=== PATIENT | male | born 1965 | race Caucasian/White ===

== ENCOUNTER 2016-11-03 16:21 | Emergency (ER) | payer MEDICARE, OTHER ==
[~2016-11-03 16:21] MED LIST: ALBU.5I NEB; ALBUAER3 INH; FLUTI110I INH; GABA300C5 PO; GABA800T PO; IBUP800T23 PO; IPRA0.02 NEB
[2016-11-03 16:34] VITALS: BP 125/78; PULSE 60; RESP 17; TEMP 98.4; O2SAT 98
--- NOTE | 2016-11-03 16:57 | PD ---
HPI Chief Complaint: Psychiatric Symptoms Time Seen by Provider: 16:57 Travel History International Travel<30 days: No Contact w/Intl Traveler<30days: No Traveled to known affect area: No History of Present Illness HPI 51-year-old male with a history of COPD, chronic back pain with neuropathy is brought to the emergency department under Becker act for suicidal ideations. The patient states that he has a history of cocaine addiction and has been clean for 20 years until this past weekend. States that some friends came into town and they were drinking alcohol and then he also started using cocaine. States that he ended up spending his rent money on cocaine and his girlfriend kicked him out. States that he became very upset about his relapse and recent decisions today and posted on Facebook that he wanted to kill himself. He states that he does have some suicidal ideations but no clear plan to harm himself. He denies any attempts to harm himself, denies any ingestion of substances. He denies any medical complaints. Denies any chest pain, short of breath, abdominal pain, nausea, vomiting, diarrhea, headache, lightheadedness or dizziness. States that he typically drinks alcohol about once per month. Denies any other drug use. No other complaints. PFSH Past Medical History Arthritis: Yes (NECK AND BACK) Asthma: Yes Autoimmune Disease: No Blood Disorders: No Anxiety: No Depression: Yes Cancer: No Cardiovascular Problems: No Chemotherapy: No COPD: Yes Diabetes: No Diminished Hearing: No Endocrine: No Gastrointestinal Disorders: No GERD: No Glaucoma: No Genitourinary: No Hepatitis: No Hiatal Hernia: No Immune Disorder: No Kidney Stones: No Musculoskeletal: Yes (BACK PAIN) Neurologic: Yes (BULGING LUMBAR DISCS) Psychiatric: Yes Reproductive: No Respiratory: Yes (COPD) Immunizations Current: Yes Radiation Therapy: No Renal Failure: No Sleep Apnea: No Ulcer: No PNEUMOCCOCAL Vaccine (Year): 2 Past Surgical History Abdominal Surgery: No Body Medical Devices: plate in neck Cardiac Surgery: No Ear Surgery: No Endocrine Surgery: No Eye Surgery: No Genitourinary Surgery: No Gynecologic Surgery: No Neurologic Surgery: Yes (C3-C4 FUSION) Oral Surgery: No Thoracic Surgery: No Other Surgery: Yes (C-4) Social History Alcohol Use: Yes (SOCIALLY) Tobacco Use: Yes (5 per day) Substance Use: No Allergies-Medications (Allergen,Severity, Reaction): Coded Allergies: Animal Dander (Verified Allergy, Severe, ASTHMA, 11/03/16) Dust (Verified Allergy, Severe, ASTHMA, 11/03/16) Molds and Smuts (Verified Allergy, Severe, ASTHMA, 11/03/16) Septra (Verified Allergy, Severe, ITCHING, 11/03/16) Sulfa (Verified Allergy, Severe, rash, 11/03/16) *MDRO Multi-Drug Resistant Organism (Verified Allergy, Unknown, 11/03/16) MRSA Reported Meds & Prescriptions Reported Meds & Active Scripts Active Ipratropium Neb (Ipratropium Alsen) 0.5 Mg/2.5 Ml Amp 0.5 Mg NEB Q6HR NEB PRN Gabapentin 300 Mg Cap 300 Mg PO DIRECTED 1 daily for 2 days, 1 twice a day for 2 days, 1 three times a day for 2 days, then 2 three times a day for 2 days. Then start the 800 mg three times a day. Gabapentin 800 Mg Tab 800 Mg PO TID Albuterol Neb (Albuterol Sulfate) 2.5 Mg/0.5 Ml Neb 2.5 Mg NEB Q6HR NEB Note: The Albuterol Sulfate Inhalation Solution is concentrated and must be diluted. Read complete instructions carefully before using. Flovent Hfa 12 GM Inh (Fluticasone Propionate) 110 Mcg/Act Inh 2 Puff INH BID Proair Hfa 8.5 GM Inh (Albuterol Sulfate) 90 Mcg/Act Aer 2 Puff INH Q6H PRN 108 mcg/actuation Reported Ibuprofen 800 Mg Tab 800 Mg PO TID Review of Systems Except as stated in HPI: all other systems reviewed are Neg Physical Exam Narrative GENERAL: Well-nourished and well-developed pleasant male patient in no acute distress who is nontoxic appearing. SKIN: Warm and dry. HEAD: Normocephalic and atraumatic. EYES: No injection, drainage, or hyphema noted. PERRLA. EOMI. ENT: No nasal drainage noted. Oropharynx is clear. NECK: Supple and the trachea is midline. CARDIOVASCULAR: Regular rate and rhythm. RESPIRATORY: Bilateral wheezing. Breath sounds are equal bilaterally with no accessory muscle use, rhonchi, or crackles. GASTROINTESTINAL: Abdomen is soft, non-tender, and nondistended. MUSCULOSKELETAL: No obvious deformities, swelling, cyanosis, or ecchymosis is present throughout the upper and lower extremities. Patient has full range of motion without any signs of neurovascular compromise. NEUROLOGICAL: Awake, alert, and oriented. Normal speech and gait. Cranial nerves are grossly intact. Data Data Last Documented VS Vital Signs Date Time Temp Pulse Resp B/P Pulse Ox O2 Delivery O2 Flow Rate FiO2 11/03/16 16:34 98.4 60 17 125/78 98 Orders Complete Blood Count With Diff (11/03/16 16:37) Comprehensive Metabolic Panel (11/03/16 16:37) Psych Screen (11/03/16 16:37) Alcohol (Ethanol) (11/03/16 16:37) Drug Screen, Random Urine (11/03/16 16:38) Albuterol Neb (Albuterol Neb) (11/03/16 17:00) Diet Regular Basic (11/03/16 Dinner) Labs Laboratory Tests Test 11/03/16 16:30 White Blood Count 5.9 TH/MM3 Red Blood Count 4.69 MIL/MM3 Hemoglobin 15.8 GM/DL Hematocrit 45.0 % Mean Corpuscular Volume 96.1 FL Mean Corpuscular Hemoglobin 33.7 PG Mean Corpuscular Hemoglobin 35.1 % Concent Red Cell Distribution Width 14.3 % Platelet Count 173 TH/MM3 Mean Platelet Volume 7.5 FL Neutrophils (%) (Auto) 45.7 % Lymphocytes (%) (Auto) 33.9 % Monocytes (%) (Auto) 7.2 % Eosinophils (%) (Auto) 12.3 % Basophils (%) (Auto) 0.9 % Neutrophils # (Auto) 2.7 TH/MM3 Lymphocytes # (Auto) 2.0 TH/MM3 Monocytes # (Auto) 0.4 TH/MM3 Eosinophils # (Auto) 0.7 TH/MM3 Basophils # (Auto) 0.1 TH/MM3 CBC Comment DIFF FINAL Differential Comment Sodium Level 142 MEQ/L Potassium Level 3.8 MEQ/L Chloride Level 110 MEQ/L Carbon Dioxide Level 25.6 MEQ/L Anion Gap 6 MEQ/L Blood Urea Nitrogen 17 MG/DL Creatinine 1.03 MG/DL Estimat Glomerular Filtration 76 ML/MIN Rate Random Glucose 93 MG/DL Calcium Level 9.1 MG/DL Total Bilirubin 0.9 MG/DL Aspartate Amino Transf 20 U/L (AST/SGOT) Alanine Aminotransferase 19 U/L (ALT/SGPT) Alkaline Phosphatase 61 U/L Total Protein 7.6 GM/DL Albumin 4.1 GM/DL Urine Opiates Screen NEG Urine Barbiturates Screen NEG Urine Amphetamines Screen NEG Urine Benzodiazepines Screen NEG Urine Cocaine Screen POS Urine Cannabinoids Screen POS Ethyl Alcohol Level LESS THAN 3 MG/DL MDM Medical Decision Making Medical Screen Exam Complete: Yes Emergency Medical Condition: Yes Differential Diagnosis Differential: Depression versus adjustment reaction versus anxiety versus PTSD versus psychosis NOS versus mood disorder NOS versus substance induced mood disorder versus ODD versus adjustment reaction versus schizophrenia versus bipolar disorder versus schizoaffective versus electrolyte abnormality Narrative Course Patient presents under a Becker act. Patient has no medical complaints to report. On physical examination he has wheezing bilaterally therefore is ordered and nebulizer treatment. Psych screen has been ordered. The laboratory results are unremarkable with the exception of urine tox positive for cannabinoids and cocaine. The patient is medically cleared for psychiatric evaluation and disposition. Diagnosis Primary Impression: Adjustment disorder with depressed mood Onelia Camara November 03, 2016 16:57
[2016-11-03] MEDS ORDERED: RESP: ALBUTEROL 2.5 MG/3 ML NEB (SCH) INH ONE (17:00)
[2016-11-03 17:07] LABS: AUTOMATED NEUTROPHIL # 2.7 TH/MM3 (1.8-7.7); BASOPHIL # 0.1 TH/MM3 (0-0.2); BASOPHIL % 0.9 % (0.0-2.0); EOSINOPHIL # 0.7 TH/MM3 (0-0.4); EOSINOPHIL % 12.3 % (0.0-4.0); HEMO FLAGS DIFF FINAL; LYMPH % 33.9 % (9.0-44.0); MEAN CELL VOLUME 96.1 FL (80.0-100.0); MEAN CORPUSCULAR HEMOGLOBIN 33.7 PG (27.0-34.0); MEAN CORPUSCULAR HGB CONC 35.1 % (32.0-36.0); MONO % 7.2 % (0.0-8.0); NEUT % 45.7 % (16.0-70.0); PLATELET COUNT 173 TH/MM3 (150-450); RED BLOOD COUNT 4.69 MIL/MM3 (4.50-5.90); RED CELL DISTRIBUTION WIDTH 14.3 % (11.6-17.2); WHITE BLOOD COUNT 5.9 TH/MM3 (4.0-11.0)
[2016-11-03 17:28] LABS: AMPHETAMINE, URINE NEG (NEG); BARBITURATES, URINE NEG (NEG); COCAINE, URINE POS (NEG)
[2016-11-03 17:37] LABS: ALKALINE PHOSPHATASE 61 U/L (45-117); TOTAL BILIRUBIN ADULT 0.9 MG/DL (0.2-1.0)
[2016-11-03 18:05] LABS: ALT (GPT) 19 U/L (12-78); ANION GAP 6 MEQ/L (5-15); AST (GOT) 20 U/L (15-37); BICARBONATE 25.6 MEQ/L (21.0-32.0); BLOOD UREA NITROGEN 17 MG/DL (7-18); CHLORIDE 110 MEQ/L (98-107); GLOMERULAR FILTRATION RATE 76 ML/MIN (>89); POTASSIUM 3.8 MEQ/L (3.5-5.1); SODIUM (NA) 142 MEQ/L (136-145)
[2016-11-03 20:54] VITALS: BP 116/71; PULSE 55; RESP 17; O2SAT 99
[2016-11-03] MEDS ORDERED: GABAPENTIN 400 MG CAP PO SCH (21:00)
--- NOTE | 2016-11-03 21:40 | PD ---
Physical Exam Narrative Patient was seen by my emergency veterinary assistant and signed out to me. Data Data Last Documented VS Vital Signs Date Time Temp Pulse Resp B/P Pulse Ox O2 Delivery O2 Flow Rate FiO2 11/03/16 20:54 55 17 116/71 99 Room Air 11/03/16 16:34 98.4 Orders Complete Blood Count With Diff (11/03/16 16:37) Comprehensive Metabolic Panel (11/03/16 16:37) Psych Screen (11/03/16 16:37) Alcohol (Ethanol) (11/03/16 16:37) Drug Screen, Random Urine (11/03/16 16:38) Albuterol Neb (Albuterol Neb) (11/03/16 17:00) Diet Regular Basic (11/03/16 Dinner) Gabapentin (Neurontin) (11/03/16 21:00) Labs Laboratory Tests Test 11/03/16 16:30 White Blood Count 5.9 TH/MM3 Red Blood Count 4.69 MIL/MM3 Hemoglobin 15.8 GM/DL Hematocrit 45.0 % Mean Corpuscular Volume 96.1 FL Mean Corpuscular Hemoglobin 33.7 PG Mean Corpuscular Hemoglobin 35.1 % Concent Red Cell Distribution Width 14.3 % Platelet Count 173 TH/MM3 Mean Platelet Volume 7.5 FL Neutrophils (%) (Auto) 45.7 % Lymphocytes (%) (Auto) 33.9 % Monocytes (%) (Auto) 7.2 % Eosinophils (%) (Auto) 12.3 % Basophils (%) (Auto) 0.9 % Neutrophils # (Auto) 2.7 TH/MM3 Lymphocytes # (Auto) 2.0 TH/MM3 Monocytes # (Auto) 0.4 TH/MM3 Eosinophils # (Auto) 0.7 TH/MM3 Basophils # (Auto) 0.1 TH/MM3 CBC Comment DIFF FINAL Differential Comment Sodium Level 142 MEQ/L Potassium Level 3.8 MEQ/L Chloride Level 110 MEQ/L Carbon Dioxide Level 25.6 MEQ/L Anion Gap 6 MEQ/L Blood Urea Nitrogen 17 MG/DL Creatinine 1.03 MG/DL Estimat Glomerular Filtration 76 ML/MIN Rate Random Glucose 93 MG/DL Calcium Level 9.1 MG/DL Total Bilirubin 0.9 MG/DL Aspartate Amino Transf 20 U/L (AST/SGOT) Alanine Aminotransferase 19 U/L (ALT/SGPT) Alkaline Phosphatase 61 U/L Total Protein 7.6 GM/DL Albumin 4.1 GM/DL Urine Opiates Screen NEG Urine Barbiturates Screen NEG Urine Amphetamines Screen NEG Urine Benzodiazepines Screen NEG Urine Cocaine Screen POS Urine Cannabinoids Screen POS Ethyl Alcohol Level LESS THAN 3 MG/DL MDM Supervised Visit with KOBE: Yes Interpretation(s) 21:39 PM. CBC CMP within normal limit. Urine drug screen positive for cocaine and cannabis. Narrative Course 21:39 PM. Patient is medically cleared for psychiatric evaluation and disposition. Diagnosis Primary Impression: Adjustment disorder with depressed mood Additional Impression: Substance abuse Cesar De Jesus MD November 03, 2016 21:40
[2016-11-04 03:00] VITALS: BP 139/59; PULSE 71; RESP 14; O2SAT 98
[2016-11-04] MEDS ORDERED: RESP: ALBUTEROL 2.5 MG/IPRATROPIUM 0.5 MG NEB (SCH) INH ONE (03:15)
[2016-11-04 06:51] VITALS: BP 124/71; PULSE 60; RESP 18; O2SAT 95
[2016-11-04 11:23] VITALS: BP 143/87; PULSE 55; RESP 18; TEMP 98.7; O2SAT 98
[2016-11-04 11:28] VITALS: BP 143/87; PULSE 55; RESP 18; O2SAT 98
--- NOTE | 2016-11-04 11:53 | PD.CONS ---
Provisional Diagnosis Admission Date 11/04/2016 Ida I. 1. Polysubstance abuse with recent relapse to cocaine Ida II. Deferred Ida V. GAF is 59 presently History of Present Illness Service Psychiatry Consult Requested By Emergency department Reason for Consult Becker act Primary Care Physician Lorraine Graham MD HPI Mr. Gee is a 51-year-old male with a reported history of bipolar disorder who presents under a Becker act by law enforcement alleging that the patient made suicidal statements on Facebook. Patient's urine toxicology was positive for cocaine and cannabinoids on arrival here. Reviewing the electronic medical record, I see no prior psychiatric consultations or admissions within our system. Patient seen and examined. Chart reviewed. Case discussed with nursing staff. There has been no evidence of any suicidality or homicidality while under observation in the [facility]. On my examination today, the patient reports that he was upset because of recent relapse to cocaine after 15-20 years of sobriety. He says that he posted a message on Facebook saying that he was "tired of being the black sheep of the family" that was interpreted as being suicidal in nature. He adamantly denies any suicidal intent and says that the goal in fact was to get support from family and friends. He notes that he deleted the post. He says with some satisfaction that the officers told him that 4-5 people had called the police voicing concern after they read the message. He denies any suicidal or homicidal ideation, intent or plan now. He says that he wants to live for his 2 sons who are "everything to me." He denies any depressive or hypomanic/manic symptoms. He denies any audiovisual hallucinations. I can elicit no delusional beliefs. He is future oriented. The remainder of the psychiatric ROS is negative. The patient is requesting discharge from the psychiatric emergency room this morning. Past psychiatric history: Patient reports a remote history of bipolar disorder. He is currently on no psychotropic medications. He is not under the care of a psychiatrist. He denies any history of psychiatric admissions or suicide attempts. Family history: Patient denies any family history of serious mental illness or suicide. He does note that his father had an alcohol problem. Chemical dependency history: Patient reports that he had been clean from cocaine for 15 or 20 years before having a relapse last Wednesday. He has continued to use cannabis. Social history: Patient lives with his fiance. He has a son age 16 and another son who lives with his ex- whom he sees on weekends. He also has a stepdaughter age 23. He has an 11th grade education. He is on disability. He denies any or legal history besides a DUI in his 20s. He denies any access to guns or firearms. He is a Jew. Review of Systems Except as stated in HPI: all other systems reviewed are Neg Past Family Social History Coded Allergies: Animal Dander (Verified Allergy, Severe, ASTHMA, 11/03/16) Dust (Verified Allergy, Severe, ASTHMA, 11/03/16) Molds and Smuts (Verified Allergy, Severe, ASTHMA, 11/03/16) Septra (Verified Allergy, Severe, ITCHING, 11/03/16) Sulfa (Verified Allergy, Severe, rash, 11/03/16) *MDRO Multi-Drug Resistant Organism (Verified Allergy, Unknown, 11/03/16) MRSA Past Medical History See electronic medical record Active Scripts Ipratropium Neb 0.5 Mg/2.5 Ml Amp0.5 Mg NEB Q6HR NEB PRN (SHORTNESS OF BREATH) # 120 NEBULE Ref 3 Prov:Lorraine Graham MD 09/29/16 Gabapentin 300 Mg [id number] Mg PO DIRECTED #30 CAP Ref 0 1 daily for 2 days, 1 twice a day for 2 days, 1 three times a day for 2 days, then 2 three times a day for 2 days. Then start the 800 mg three times a day. Prov:Lorraine Graham MD 09/29/16 Gabapentin 800 Mg [id number] Mg PO TID #270 TAB Ref 0 Prov:Lorraine Graham MD 09/29/16 Albuterol Neb 2.5 Mg/0.5 Ml Neb2.5 Mg NEB Q6HR NEB #120 BOX Ref 3 Note: The Albuterol Sulfate Inhalation Solution is concentrated and must be diluted. Read complete instructions carefully before using. Prov:Lorraine Graham MD 09/29/16 Fluticasone 12 GM Inh (Flovent Hfa 12 GM Inh)110 Mcg/Act Inh2 Puff INH BID #3 INHALER Ref 3 Prov:Lorraine Graham MD 09/29/16 Albuterol 8.5 GM Inh (Proair Hfa 8.5 GM Inh)90 Mcg/Act Aer2 Puff INH Q6H PRN ( SHORTNESS OF BREATH) #3 INHALER Ref 3 108 mcg/actuation Prov:Lorraine Graham MD 09/29/16 Reported Medications Ibuprofen 800 Mg [id number] Mg PO TID #90 TAB Ref 0 09/24/16 Current Medications Medications (Trade) Dose Ordered Sig/Theresa Route Start Time Stop Time Status Last Admin (Neurontin) 800 mg ONCE PO 11/03/16 21:00 Family History See above Social History See above Patient's Strengths (min. 2) Attending to basic needs. Verbally fluent. Physical Exam Physical examination completed by ED provider. On my examination today, the patient appears to be no acute physical distress. No abnormal motor movements noted. Laboratories and vital signs reviewed: Vital Signs Vital Signs Date Time Temp Pulse Resp B/P Pulse Ox O2 Delivery O2 Flow Rate FiO2 11/04/16 11:28 55 18 143/87 98 Room Air 11/04/16 11:23 98.7 Lab Results Item Value Date Time White Blood Count 5.9 TH/MM3 11/03/16 1630 Hemoglobin 15.8 GM/DL 11/03/16 1630 Platelet Count 173 TH/MM3 11/03/16 1630 Sodium Level 142 MEQ/L 11/03/16 1630 Potassium Level 3.8 MEQ/L 11/03/16 1630 Chloride Level 110 MEQ/L H 11/03/16 1630 Carbon Dioxide Level 25.6 MEQ/L 11/03/16 1630 Blood Urea Nitrogen 17 MG/DL 11/03/16 1630 Creatinine 1.03 MG/DL 11/03/16 1630 Aspartate Amino Transf (AST/SGOT) 20 U/L 11/03/16 1630 Alanine Aminotransferase (ALT/SGPT) 19 U/L 11/03/16 1630 Alkaline Phosphatase 61 U/L 11/03/16 1630 Urine Cocaine Screen POS H 11/03/16 1630 Urine Cannabinoids Screen POS H 11/03/16 1630 Ethyl Alcohol Level LESS THAN 3 MG/DL 11/03/16 1630 Mental Status Examination Patient is in hospital gown. He is well groomed. He is awake and alert and oriented 3. No evidence of delirium. No abnormal motor movements noted. Speech is within normal limits for rate, tone and volume. Language and fund of knowledge seem average. Mood is fair and affect is full and reactive. Thought process linear. No loosening of associations. No evident delusions. Denies audiovisual hallucinations. Denies suicidal or homicidal ideation, intent or plan. Insight and judgment are fair. Assessment & Plan Problem List: (1) Polysubstance abuse ICD Code: F19.10 Assessment & Plan This is a 51-year-old male with psychiatric history as detailed above who presents under a Becker act. On my evaluation today, the patient reports that his posting to [employer] was not suicidal in nature but was rather intended to gain an outpouring of support, which he in fact obtained. He denies any suicidal or homicidal ideation, intent or plan at this time. He is future oriented. He says that his plan to regain his sobriety is to resume going to 12 -step meetings and also return to baptism. There is no evidence of any unstable mood, anxiety or psychotic disorder in this patient at this time. He appears to be attending to his basic needs. Synthesizing all of this information and weighing the acute, chronic, and protective factors, I yard manager to a reasonable degree of medical certainty that the patient does not represent an imminent risk of harm to himself or others and his level of function seems to be adequate for outpatient care. The patient does not meet Becker act criteria therefore and I have lifted the Becker act. I recommended that the patient pursue outpatient psychiatric and chemical dependency treatment and we will provide the appropriate referrals. I supported the patient is desire to regain his sobriety. I counseled the patient regarding warning signs for need to return to the psychiatric emergency room as part of the general safety plan. Patient is otherwise psychiatrically clear for discharge from the ED. Thank you very much for this consultation. Request Surrog/Guard Advoc?: No Rasheed Siegel MD November 04, 2016 11:53
[2016-12-22] MEDS ORDERED: BUPR1TAB70 PO (09:04)
[2016-12-22] MEDS ORDERED: ALBUAER3 INH (09:17)
[2016-12-22] MEDS ORDERED: FLUTI110I INH (09:17)
[2016-12-22] MEDS ORDERED: GABA800T PO (09:17)
[2016-12-22] MEDS ORDERED: IPRA0.02 NEB (09:17)
[2016-12-22] MEDS ORDERED: ALBU.5I NEB (09:17)
== END 2016-11-04 13:13 | disposition home or self-care (01) ==
LOC: NEDAMB 16:21 → NEPJ 11-04 13:13
DX: F43.21 Adjustment disorder with depressed mood (principal); F14.10 Cocaine abuse, uncomplicated; J44.9 Chronic obstructive pulmonary disease, unspecified; F32.9 Major depressive disorder, single episode, unspecified; F12.90 Cannabis use, unspecified, uncomplicated; F31.9 Bipolar disorder, unspecified; Z72.0 Tobacco use
CPT/HCPCS: 80053; 80307; 85025; 94640; 94664; 99285; J7613